=== PATIENT | female | born 1950 | race African-American/Black ===

== ENCOUNTER 2016-10-18 05:08 | Day surgery (SDC) | payer OTHER ==
[2016-10-15 13:20] VITALS: BMI 24.5
[2016-10-18] MEDS ORDERED: MIDAZOLAM HCL 2 MG/2 ML SINGLE DOSE VIAL ONE (09:34)
[2016-10-18] MEDS ORDERED: PROPOFOL 20 ML ONE (09:34)
[2016-10-18] MEDS ORDERED: ceFAZolin SODIUM 1 GM VIAL IVPB ONE ×2 (09:52→09:57)
[2016-10-18] MEDS ORDERED: ceFAZolin SODIUM 1 GM VIAL ONE (09:56)
[2016-10-18] MEDS ORDERED: DEXAMETHASONE SOD PHOSPHATE 4 MG/1 ML VIAL ONE (09:56)
[2016-10-18] MEDS ORDERED: ATROPINE SULFATE 1 MG/10 ML DISP.SYRIN ONE (10:18)
--- NOTE | 2016-10-18 10:40 | HP ---
History & Physical Update - History History: No Change - Physical Physical: No Change - Assessment Assessment: No Change - Plan Plan: No Change
--- NOTE | 2016-10-18 10:41 | OP ---
Operative Note - Note: Operative Date: 10/18/16 Pre-Operative Diagnosis: Endometrial hyperplasia Operation: Hysteroscopic myomectomy. Suction DC Findings: Calcified submucosal myoma Post-Operative Diagnosis: Same as Pre-op Surgeon: Jennifer Suh Anesthesia: General Estimated Blood Loss (mls): 20 Operative Report Dictated: Yes
[2016-10-18] MEDS ORDERED: oxyCODONE HCL 5 MG TABLET PO PRN (10:57)
[2016-10-18] MEDS ORDERED: ONDANSETRON 4 MG/2 ML VIAL IVPUSH PRN (10:57)
[2016-10-18] MEDS ORDERED: LACTATED RINGERS SOLUTION 1,000 ML IV SCH (11:00)
--- NOTE | 2016-10-18 11:28 | OP ---
DATE OF OPERATION: 10/18/2016 PREOPERATIVE DIAGNOSIS: Endometrial hyperplasia. OPERATION: Hysteroscopic myomectomy, suction dilatation and curettage. POSTOPERATIVE DIAGNOSES: Endometrial hyperplasia and submucosal myoma, calcified myoma seen intramurally anteriorly, uterine prolapse. SURGEON: Jennifer Suh MD ANESTHESIA: General. ANESTHESIOLOGIST: Teri Puga MD PROCEDURE: Patient was taken to the operating room. Placed in dorsal lithotomy position. Prepped and draped in usual sterile fashion. Speculum was placed in the vagina. Timeout was performed in accordance with hospital regulation. Anterior lip of the cervix grasped with single-tooth tenaculum. Cervix then dilated to accommodate the operative hysteroscope. Hysteroscopy was then performed. Calcified anterior myoma was seen as well as some endometrial polyps. Cautery was then used to cut the endometrial polyps and the anterior aspect of the uterus was then cut with the cautery. A calcified hard myoma was palpated. Portions of the myoma were removed. Suction D & C was then performed. Most of the myoma could not be removed due to its hard nature and calcified in the wall of the uterus. After sufficient suction D & C and contents removed, all instruments then removed. Patient had tolerated procedure well. Estimated blood loss: 20 mL. JENNIFER SUH M.D. [id number]
[2016-10-18 11:34] VITALS: TEMP 97.6
[2016-10-18 13:03] VITALS: BP 127/70; PULSE 70
--- NOTE | 2016-10-22 12:31 | PATH ---
Surgical Pathology Report Patient Name: FREEMAN GROVES [facility]. Rec. #: [id number] /Age/Gender: 1950 (Age: 66) / F Account: [id number] Location: [facility] SURGICAL Taken: 10/18/2016 Received: 10/18/2016 Reported: 10/22/2016 Physicians: Jennifer Suh M.D. Specimen(s) Received CALCIFIED MYOMA / ENDOMETRIAL CURETTINGS Clinical History Postmenopausal bleeding Final Diagnosis CALCIFIED MYOMA/ENDOMETRIAL CURETTINGS, HYSTEROSCOPIC MYOMECTOMY, SUCTION DILATION AND CURETTAGE: FRAGMENTS OF ENDOMETRIAL POLYP. FRAGMENTS OF BENIGN SMOOTH MUSCLE WITH OVERLYING BENIGN ENDOMETRIUM AND DEGENERATIVE CHANGES INCLUDING CALCIFICATIONS, MOST CONSISTENT WITH SUBMUCOSAL LEIOMYOMA. Electronically Signed Marshall Jackson M.D. Gross Description Received in formalin labeled "calcified myoma, endometrial curetting" is a 1 g, 2.5 x 1.5 x 0.3 cm aggregate of culver-pink soft tissue fragments. The formalin is filtered and the specimen is entirely submitted in one cassette. /10/18/2016 saudi10/18/2016
== END 2016-10-18 13:12 | disposition home or self-care (01) ==
LOC: JASU-SURG 05:08
PROVIDERS: ATTEND Obstetrics & Gynecology
PROC: 0UDB8ZX Extraction of Endometrium, Via Natural or Artificial Opening Endoscopic, Diagnostic (ICD-10-PCS; principal; 2016-10-18 09:30)
PROC: 0UB98ZZ Excision of Uterus, Via Natural or Artificial Opening Endoscopic (ICD-10-PCS; 2016-10-18 09:30)
DX: N85.00 Endometrial hyperplasia, unspecified (principal); D25.0 Submucous leiomyoma of uterus
CPT/HCPCS: 88305-TC; 94760

== ENCOUNTER 2019-04-15 06:15 | Day surgery (SDC) | payer OTHER ==
[2019-04-14 17:22] VITALS: BMI 25.4
[2019-04-15] MEDS ORDERED: BUPIVACAINE HCL/PF 0.5% (5 MG/ML) 30 ML VIAL IJ ONE (07:07)
[2019-04-15] MEDS ORDERED: ePHEDrine SULFATE 50 MG/1 ML AMPULE ONE (07:16)
[2019-04-15] MEDS ORDERED: fentaNYL CITRATE 250 MCG/5 ML VIAL ONE (07:17)
[2019-04-15] MEDS ORDERED: ROCURONIUM BROMIDE 50 MG/5 ML SYRINGE ONE ×2 (07:17→09:13)
[2019-04-15] MEDS ORDERED: PROPOFOL 20 ML ONE ×2 (07:17)
[2019-04-15] MEDS ORDERED: MIDAZOLAM HCL 2 MG/2 ML SINGLE DOSE VIAL ONE ×3 (07:18→07:34)
[2019-04-15] MEDS ORDERED: LIDOCAINE HCL/PF 2% SDV 5ML VIAL ONE (07:19)
[2019-04-15] MEDS ORDERED: LIDOCAINE HCL 2% JELLY (5 ML/TUBE) ONE (07:19)
[2019-04-15] MEDS ORDERED: PHENAZOPYRIDINE HCL 100 MG TABLET (FP) ONE (07:28)
[2019-04-15] MEDS ORDERED: ceFAZolin SODIUM 1 GM VIAL ONE ×4 (07:29→16:46)
[2019-04-15] MEDS ORDERED: ROPIVACAINE HCL 0.5% 30ML VIAL ONE (07:32)
--- NOTE | 2019-04-15 07:57 | HP ---
History & Physical Update - History History: No Change - Physical Physical: No Change - Assessment Assessment: No Change - Plan Plan: No Change (No change to medical history since preop evaluation with PCP ( Dr Phillips on 03/22) ad Cardiology clearance with Dr Shah on 04/05. No h/o dvt/pe or use of anticoagulation.)
[2019-04-15] MEDS ORDERED: ceFAZolin SODIUM 1 GM VIAL IVPB ONE (08:20)
[2019-04-15] MEDS ORDERED: DEXAMETHASONE SOD PHOSPHATE 4 MG/1 ML VIAL ONE (08:46)
[2019-04-15] MEDS ORDERED: NEOSTIGMINE METHYLSULFATE 0.5 MG/ML - 10 ML MDV ONE (10:12)
[2019-04-15] MEDS ORDERED: ONDANSETRON 4 MG/2 ML VIAL IVPUSH PRN ×2 (10:43→11:00)
[2019-04-15] MEDS ORDERED: BISACODYL 5 MG TABLET.DR (FP) PO PRN (11:00)
[2019-04-15] MEDS ORDERED: SIMETHICONE 80 MG TAB.CHEW (FP) PO PRN (11:00)
[2019-04-15] MEDS ORDERED: LACTATED RINGERS SOLUTION 1,000 ML/1,000 ML INFUS.BAG IV SCH (11:00)
[2019-04-15] MEDS ORDERED: oxyCODONE HCL 5 MG TABLET PO PRN ×2 (11:00)
[2019-04-15] MEDS ORDERED: DOCUSATE SODIUM 100 MG CAPSULE (FP) PO PRN (11:00)
[2019-04-15] MEDS ORDERED: IBUPROFEN 800 MG/8 ML IJ IVPB PRN (11:00)
[2019-04-15] MEDS ORDERED: ACETAMINOPHEN 325 MG TABLET (FP) PO PRN (11:00)
--- NOTE | 2019-04-15 11:15 | OP ---
Operative Note - Note: Operative Date: 04/15/19 Pre-Operative Diagnosis: Leiomyoma, uterine prolapse Operation: Robotic assisted total abdominal hysterectomy and bilateral salpingectomy Findings: as dictated Post-Operative Diagnosis: Same as Pre-op Surgeon: Jennifer Suh Hazardous Waste Management Specialist: Pio Beal Anesthesiologist/PRINCIPAL AUTOMATION ENGINEER: Lety Healy Anesthesia: General Specimens Removed: Uterus, bilateral fallopian tubes Estimated Blood Loss (mls): 25 (ml) Drains, Volume Out (mls): 400 (ml clear urine) Fluid Volume Replaced (mls): 1,200 (ml LR) Operative Report Dictated: Yes
--- NOTE | 2019-04-15 11:16 | SURG ---
Surgery Scenery Builder Note Scenery Builder: Pio Beal PA-C (Suzy) Date of Service: 04/15/19 Diagnosis: Leiomyoma, uterine prolapse Procedure: Operation: Robotic assisted total abdominal hysterectomy and bilateral salpingectomy I was present for the entirety of the operative procedure. For further detail, please refer to operative report. Visit type - Case Type Case Type: Scheduled - Emergency Emergency Visit: No - New patient This patient is new to me today: Yes Date on this admission: 04/16/19 - Critical Care Critical Care patient: No
[2019-04-15] MEDS ORDERED: IBUPROFEN 800 MG/8 ML IJ IVPB ONE (11:36)
[2019-04-15] MEDS ORDERED: PHENAZOPYRIDINE HCL 100 MG TABLET (FP) PO ONE (11:45)
[2019-04-15] MEDS ORDERED: CEFAZOLIN 1 GM in DEXTROSE 5%-WATER - 100 ML IVPB ONE (11:45)
[2019-04-15] MEDS ORDERED: CEFAZOLIN 1 GM/D5W 1 GM/50 ML BAG IVPB SCH (16:30)
[2019-04-15 17:41] LABS: HEMATOCRIT 41.4 % (32.4-45.2); HEMOGLOBIN 13.5 GM/dL (10.7-15.3); MCH 25.8 pg (25.7-33.7); MCHC 32.6 g/dl (32.0-36.0); MEAN CELL VOLUME 79.1 fl (80-96); MEAN PLT VOLUME 7.7 fl (7.5-11.1); PLATELET COUNT 244 K/MM3 (134-434); RBC 5.23 M/mm3 (3.60-5.2); RDW 14.1 % (11.6-15.6); WHITE BLOOD COUNT 10.3 K/mm3 (4.0-10.0)
[2019-04-15 18:13] LABS: BLOOD UREA NITROGEN 7.4 mg/dL (7-18); CALCIUM 8.5 mg/dL (8.5-10.1); CREATININE 0.8 mg/dL (0.55-1.3)
[2019-04-15] MEDS: LACTATED RINGERS SOLUTION 1,000 ML IV SCH (21:44)
[2019-04-15] MEDS ORDERED: ATORVASTATIN CA 40 MG TABLET (FP) PO SCH (22:00)
[2019-04-16 04:47] VITALS: BP 120/70; PULSE 92; TEMP 98.6
[2019-04-16] MEDS: LACTATED RINGERS SOLUTION 1,000 ML IV SCH (05:36)
--- NOTE | 2019-04-16 07:49 | PN ---
Progress Note (short form) - Note Progress Note: POD 1, s/p Robotic assisted total abdominal hysterectomy and bilateral salpingectomy Pt seen and examined. Reports she is feeling well. Reports she would have gone home last night if permitted. No pain, has not taken any pain meds. No n/v. Has been oob to restroom. Passing flatus. Minimal vaginal bleeding. Tolerating clears, reports heartburn overnight. Denies cp/sob, n/v/d. Vital Signs Temp 98.6 F 04/16/19 04:27 Pulse 92 H 04/16/19 04:27 Resp 20 04/16/19 04:27 BP 120/70 04/16/19 04:27 Pulse Ox 96 04/15/19 20:00 Intake & Output 04/15/19 04/15/19 04/16/19 11:59 23:59 11:59 Intake Total 19995 Output Total 1025 4400 Balance 975 -2225 Intake: IV 1999 1675 Lactated Ringers Solution 375 1,000 ml @ 125 mls/hr IV ASDIR ADEBAYO Rx#: [id number] IVPB 0 Oral 500 Output: Urine 1000 4400 Estimated Blood Loss 25 Other: # Unmeasured Voids Void 1 2 Bowel Movement No No CBC, BMP 04/15/19 17:15 04/15/19 17:15 CBC, BMP 04/16/19 07:35 04/16/19 07:35 Gen: awake, alert, nad Resp: unlabored on RA Abdo: soft, minimally ttp in pelvis, incisions c/d/i with dermabond in place. A/P: 68 y/o F w/ PMHx htn, hld, leiomyoma/pelvic prolapse now POD 1, s/p Robotic assisted total abdominal hysterectomy and bilateral salpingectomy. afebrile, vss. labs stable last nignt, AM labs pending-> am labs reviewed and stable -Pepcid ordered prn -Lovenox 40mg x1 dose this AM -Monitor VS -oob ad jsaon -Regular diet -plan for d/c later this AM d/w attending Dr Suh
[2019-04-16] MEDS ORDERED: FAMOTIDINE 20 MG TABLET PO PRN (07:55)
--- NOTE | 2019-04-16 08:31 | PN ---
Progress Note (short form) - Note Progress Note: Anesthesia postop note 68 y/o F s/o GA/TAP blocks for robotic hysterectomy POD#1, vss, aaox3, no complaints. No anesthesia complications.
[2019-04-16 09:07] LABS: HEMATOCRIT 35.5 % (32.4-45.2); HEMOGLOBIN 11.6 GM/dL (10.7-15.3); MCH 25.1 pg (25.7-33.7); MCHC 32.5 g/dl (32.0-36.0); MEAN CELL VOLUME 77.1 fl (80-96); MEAN PLT VOLUME 7.6 fl (7.5-11.1); PLATELET COUNT 229 K/MM3 (134-434); RBC 4.61 M/mm3 (3.60-5.2); RDW 14.2 % (11.6-15.6); WHITE BLOOD COUNT 9.2 K/mm3 (4.0-10.0)
[2019-04-16 09:18] LABS: BLOOD UREA NITROGEN 9.9 mg/dL (7-18); CALCIUM 8.7 mg/dL (8.5-10.1); CREATININE 0.7 mg/dL (0.55-1.3); POTASSIUM 3.8 mmol/L (3.5-5.1)
[2019-04-16] MEDS ORDERED: OMEGA-3 ACID ETHYL ESTERS (FATTY-ACIDS) 1 GM CAPSULE (FP) PO SCH (10:00)
[2019-04-16] MEDS ORDERED: ENOXAPARIN NA (PORCINE) 40 MG/0.4 ML DISP.SYRIN SQ SCH (10:00)
[2019-04-16] MEDS ORDERED: amLODIPine BESYLATE 5 MG TABLET (FP) PO SCH (10:00)
--- NOTE | 2019-04-16 12:15 | OP ---
DATE OF OPERATION: 04/15/2019 PREOPERATIVE DIAGNOSIS: Leiomyomatous uterus and pelvic prolapse. OPERATION: Laparoscopic robotic total hysterectomy and bilateral salpingectomy. SURGEON: Jennifer Suh MD WET AND DRY SUGAR BIN OPERATOR: YESY Murdock ANESTHESIA: General. DESCRIPTION OF PROCEDURE: Patient was taken to the operating room, placed in dorsal lithotomy position, prepped and draped in the usual sterile fashion. Time-out was performed in accordance with hospital regulation. Speculum was placed in the vagina, and the anterior lip of the cervix was grasped with a single-tooth tenaculum. Cervix was then dilated to accommodate the uterine manipulator. To catheter was inserted into the bladder. Attention was then drawn to the umbilicus where an 8-mm umbilical incision was made. Veress needle was inserted into the cavity. Approximately 3-4 L of CO2 was insufflated. Veress needle was then removed, and an 8-mm trocar was then inserted. Two trocars were placed on the left, 1 in the upper abdomen, one 10 cm away from the umbilicus, and 2 incisions were made on the right side parallel to each other 10 cm apart. All trocars were inserted under direct visualization after laparoscope and camera were placed. After placement was confirmed and ports , the da Stanton robot was then side docked to the patient's bedside. Trocars were then inserted after instruments were placed. The vessel sealer placed on arm 1. The scope was placed in arm 2, Endo Maxi in 3, and tenaculum in 4. After all instruments were placed, attention was then drawn to control of the console where control of the da Stanton robot was then as done. Tenaculum was then used to elevate the uterus. A large, anterior, approximately 9-cm myoma was noted in the anterior aspect of the uterus, which had the uterus flipped in the opposite direction and . After elevating the uterus out of the pelvis, the utero-ovarian ligament was identified and clamped and cut. Uterine artery was identified and clamped and cut. Vesicouterine reflection was then entered, and bladder was bluntly dissected out of the operative field. Cardinal ligaments identified and clamped and cut down to the level of the cervix. Same procedure was repeated on the other side. The utero-ovarian ligament was identified and clamped and cut. The round ligament was identified and clamped and cut. The uterine arteries were identified, clamped, and cut down to the level of the cervix. Endo Maxi were then used to cut the vagina away from the cervix. After cervix had been totally removed from the vagina, the uterus and cervix was then removed. Tubes were bilaterally grasped, coagulated and cut and removed, and removed through the vagina. The 2-0 V-Lock suture was then used to close the vagina using the robot. Hemostasis was achieved. Ureters were identified throughout the case and found to have peristalsis and also was found to have peristalsis at the end of the case. All instruments were then removed. Incisions were then closed using 4-0 Biosyn suture in a subcuticular fashion after all CO2 had been removed. Estimated blood loss was about 25 mL. Patient had tolerated procedure well and was taken to the recovery room in stable condition. Emy [id number]
[2019-04-16] MEDS ORDERED: CEFAZOLIN 1 GM in DEXTROSE 5%-WATER - 50 ML IVPB SCH (18:00)
--- NOTE | 2019-04-20 12:18 | PATH ---
Surgical Pathology Report Patient Name: FREEMAN GROVES [facility]. Rec. #: [id number] /Age/Gender: 1950 (Age: 68) / F Account: [id number] Location: AMBULATORY SURG Taken: 04/15/2019 Received: 04/15/2019 Reported: 04/20/2019 Physicians: Jennifer Suh M.D. Specimen(s) Received A: UTERUS AND CERVIX B: LEFT FALLOPIAN TUBE C: RIGHT FALLOPIAN TUBE Clinical History Uterine prolapse, fibroid Final Diagnosis A. UTERUS AND CERVIX, TOTAL HYSTERECTOMY: LEIOMYOMAS WITH DEGENERATIVE CHANGES (HYALINIZATION AND CALCIFICATION). ATROPHIC ENDOMETRIUM. CERVIX WITH MILD CHRONIC CERVICITIS AND SQUAMOUS METAPLASIA. B. LEFT FALLOPIAN TUBE, SALPINGECTOMY: PORTION OF FALLOPIAN TUBE WITH NO SIGNIFICANT PATHOLOGIC CHANGE. C. RIGHT FALLOPIAN TUBE, SALPINGECTOMY: PORTION OF FALLOPIAN TUBE WITH NO SIGNIFICANT PATHOLOGIC CHANGE. Electronically Signed Abhay Guzmán M.D. Gross Description A. Received in formalin labeled "uterus and cervix," is a 237 g uterus with an attached cervix and no attached adnexa. The specimen measures 11.5 cm from superior to inferior, 8.3 cm from anterior to posterior and 6.0 cm from left to right. The serosa is culver-yeager with a large defect at the anterior aspect. The attached cervix measures 4.5 cm in length and averages 2.8 cm in diameter. The ectocervix is culver, smooth and glistening. The endocervix is unremarkable. The endometrial cavity measures 5.5 cm in length and averages 2.8 cm from cornu. The endometrium is culver and averages less than 0.1 cm in thickness. The anterior endometrium displays a bulging, calcified submucosal nodule, measuring 5 cm in greatest dimension. Sectioning of the calcified nodule reveals yellow to sheppard degenerative parenchyma. There are additional smaller intramural nodules present, measuring up to 1.4 cm in greatest dimension. The cut surface of the additional nodule is culver and rubbery with gross architecture. The remaining myometrium is culver and measures up to 4 cm in thickness. Skin Piler sections are submitted in 9 cassettes as follows: 1- anterior cervix; 2-posterior cervix; 2-9-dadjcupc endometrium; 7-3-yidjvuicp endomyometrium; 7-1-yazjirujd submucosal nodule, following decalcification; 9-additional intramural nodules. B. Received in formalin labeled "left fallopian tube," is a 4.5 cm length of fimbriated fallopian tube. The outer surface is culver yeager and smooth. Sectioning reveals an unremarkable lumen. Skin Piler sections are submitted in 2 cassettes as follows: 1-fimbria; 2-cross sections of fallopian tube. C. Received in formalin labeled "right fallopian tube," is a 3.5 cm in length fimbriated fallopian tube. The outer surface is culver-sheppard and smooth. Sectioning reveals an unremarkable lumen. Skin Piler sections are submitted in 2 cassettes as follows:1-fimbria; 2-cross sections of fallopian tube. 04/16/2019 [facility]04/16/2019
== END 2019-04-16 15:47 | disposition home or self-care (01) ==
LOC: JASUSAT 06:15 → J6S 19:03 → JASUSAT 04-16 15:47
PROVIDERS: ATTEND Obstetrics & Gynecology
PROC: 0UT9FZZ Resection of Uterus, Via Natural or Artificial Opening With Percutaneous Endoscopic Assistance (ICD-10-PCS; principal; 2019-04-15 07:30)
PROC: 0UT7FZZ Resection of Bilateral Fallopian Tubes, Via Natural or Artificial Opening With Percutaneous Endoscopic Assistance (ICD-10-PCS; 2019-04-15 07:30)
DX: D25.9 Leiomyoma of uterus, unspecified (principal); N81.4 Uterovaginal prolapse, unspecified; N72 Inflammatory disease of cervix uteri
CPT/HCPCS: 36415; 80048; 85027; 86850; 86900; 86901; 88302-TC; 88307-TC; 94760